=== PATIENT | male | born 1980 | race Two or more races ===

== ENCOUNTER 2024-08-18 19:13 | Emergency (ER) | payer OTHER ==
[~2024-08-18] VITALS: Ht 182.9 cm; Wt 116.6 kg
[2024-08-18] MEDS ORDERED: AVAPRO300 MG PO (19:22)
[2024-08-18 19:23] VITALS: BP 97/66; O2SAT 100
[2024-08-18 22:27] LABS: HEMATOCRIT 43.6 % (39.0-48.0); HEMOGLOBIN 14.8 g/dL (13-16.00); MEAN CORPUSCULAR HEMOGLOBIN 29.2 pg (27.00-32.0); MEAN CORPUSCULAR HGB CONC 33.9 g/dl (32.0-36.0); PLATELET COUNT 145 K/uL (150-450); RED BLOOD COUNT 5.07 M/uL (4.00-6.00)
== END 2024-08-19 01:21 | disposition home or self-care (01) ==
LOC: ER 19:15
PROVIDERS: Preventive Medicine Public Health & General Preventive Medicine
DX: B34.9 Viral infection, unspecified (principal); Z20.822 Contact with and (suspected) exposure to COVID-19; I10 Essential (primary) hypertension